=== PATIENT | female | born 1985 | race Caucasian/White ===

== ENCOUNTER 2023-04-27 06:19 | Day surgery (SDC) | payer MEDICAID ==
[2023-04-26 20:07] LABS: BASOPHILS # (AUTO) 0.1 K/uL (0.00-0.22); BASOPHILS % (AUTO) 0.9 % (0.0-2.0); EOSINOPHILS # (AUTO) 0.2 K/uL (0-0.4); EOSINOPHILS % (AUTO) 3.6 % (0.0-4.0); HEMOGLOBIN 12.8 g/dL (12.0-16.0); LYMPHOCYTES # (AUTO) 2.3 K/uL (2.5-16.5); LYMPHOCYTES % (AUTO) 38.3 % (20.5-51.1); MEAN CORPUSCULAR HEMOGLOBIN 32 pg (27-31); MEAN CORPUSCULAR HGB CONC 34 g/dL (33-37); MEAN CORPUSCULAR VOLUME 93.9 fL (80-94); MONOCYTES # (AUTO) 0.3 K/uL (0.8-1.0); MONOCYTES % (AUTO) 5.5 % (1.7-9.3); NEUTROPHILS # (AUTO) 3.2 K/uL (1.8-7.7); NEUTROPHILS % (AUTO) 51.7 % (42.2-75.2); PLATELET COUNT (AUTO) 247 K/uL (140-450); RED BLOOD CELL COUNT(AUTO) 4.04 MIL/uL (4.20-5.40); RED CELL DISTRIBUTION WIDTH 13.8 % (11.6-13.7); WHITE BLOOD COUNT (AUTO) 6.1 K/uL (4.8-10.8)
[2023-04-26 20:40] LABS: ANION GAP 8.6 (8-16); CALCIUM 9.7 mg/dL (8.5-10.1); CARBON DIOXIDE 30.1 mmol/L (21-32); CREATININE 0.7 mg/dL (0.6-1.3); POTASSIUM 3.7 mmol/L (3.5-5.1); TOTAL BILIRUBIN 0.5 mg/dL (0.0-1.0); TOTAL PROTEIN, SERUM 7.6 g/dL (6.4-8.2)
[~2023-04-27] VITALS: Ht 167.6 cm; Wt 79.4 kg
[2023-04-27] MEDS ORDERED: ceFAZolin 1,000 MG VIAL ONE ×2 (07:29→09:00)
[2023-04-27] MEDS ORDERED: LIDOCAINE/EPI MPF 1%1:200000 30 ML VIAL INJ ONE (08:20)
[2023-04-27] MEDS ORDERED: BUPIVACAINE-MPF 0.5% 10 ML VIAL INJ ONE (08:23)
[2023-04-27] MEDS ORDERED: PROPOFOL 200 MG/20 ML VIAL IV ONE ×2 (09:00→09:29)
[2023-04-27] MEDS ORDERED: ONDANSETRON 4 MG/2 ML VIAL ONE ×2 (09:00→09:44)
[2023-04-27] MEDS ORDERED: ceFAZolin 1,000 MG VIAL IVP ONE (09:00)
[2023-04-27] MEDS ORDERED: SEVOFLURANE 250 ML BTL INH ONE (09:00)
[2023-04-27] MEDS ORDERED: fentaNYL citrate 0.05 MG/ML - 50mL vial IV ONE (09:00)
[2023-04-27] MEDS ORDERED: DEXAMETHASONE 4 MG/ML VIAL ONE ×2 (09:00→09:44)
[2023-04-27] MEDS ORDERED: MIDAZOLAM 2 MG/2 ML VIAL ONE (09:27)
[2023-04-27] MEDS ORDERED: fentaNYL citrate 0.05 MG/ML VIAL ONE (09:27)
[2023-04-27] MEDS ORDERED: LIDOCAINE MPF 2% 100 MG/5 ML VIAL INJ ONE (09:43)
[2023-04-27] MEDS ORDERED: MEPERIDINE 25 MG/ML SYR IVP PRN (10:00)
[2023-04-27] MEDS ORDERED: LACTATED RINGERS 1,000 ML IV SCH (10:00)
[2023-04-27] MEDS ORDERED: diphenhydrAMINE 50 MG/ML VIAL IVP PRN (10:00)
[2023-04-27] MEDS ORDERED: HYDROmorphone 1 MG/ML AMP IVP PRN ×2 (10:00→10:40)
[2023-04-27] MEDS ORDERED: ONDANSETRON 4 MG/2 ML VIAL IVP PRN (10:00)
[2023-04-27] MEDS ORDERED: ACETAMINOPHEN 325 MG TAB PO PRN (10:40)
[2023-04-27] MEDS ORDERED: MORPHINE SULFATE 4 MG/ML SYR IV PRN (10:40)
[2023-04-27] MEDS ORDERED: ONDANSETRON 4 MG/2 ML VIAL IV PRN (10:40)
[2023-04-27] MEDS ORDERED: MORPHINE SULFATE 2 MG/ML SYR IVP PRN (10:40)
[2023-04-27] MEDS ORDERED: ACET-9525 PO (10:47)
== END 2023-04-27 12:21 | disposition home or self-care (01) ==
LOC: MDS 06:19 → MMU 06:21 → MDS 12:21
PROVIDERS: ATTEND Surgery
DX: C50.912 Malignant neoplasm of unspecified site of left female breast (principal); C77.3 Secondary and unspecified malignant neoplasm of axilla and upper limb lymph nodes; Z79.899 Other long term (current) drug therapy
CPT/HCPCS: 36415; 36561; 71045; 76937; 77001; 80053; 81025; 85025; 86886; 86900; 86901; C1788; J0690; J1100; J1644; J2001; J2250; J2405; J2704; J3010; J3490; J7030; J7120; Q0092